=== PATIENT | male | born 1955 | race Caucasian/White ===

== ENCOUNTER 2017-08-21 11:12 | Emergency (ER) | payer OTHER ==
[~2017-08-21] VITALS: Ht 182.9 cm; Wt 145.1 kg
[2017-08-21] MEDS ORDERED: MECLIZINE HCL 12.5 MG TAB PO ONE (11:30)
[2017-08-21 12:20] VITALS: BP 150/88
[2017-08-21] MEDS ORDERED: SODIUM CHLORIDE 0.9% 1000ML 1,000 ML IV SCH (12:45)
[2017-08-22] MEDS ORDERED: SODIUM CHLORIDE 0.9% 1000ML 1,000 ML IV SCH (12:32)
== END 2017-08-21 12:15 | disposition home or self-care (01) ==
LOC: FSED 11:12
DX: R42 Dizziness and giddiness (principal); H81.13 Benign paroxysmal vertigo, bilateral
CPT/HCPCS: 80053; 85025; 99283

== ENCOUNTER 2017-12-05 15:20 | Inpatient (IN) | payer OTHER ==
[~2017-12-05] VITALS: Ht 182.9 cm; Wt 148.3 kg
[2017-12-05] MEDS ORDERED: ONDANSETRON HCL INJ 2 MG/ML VIAL IV STA (15:36)
[2017-12-05] MEDS ORDERED: SODIUM CHLORIDE 0.9% 1000ML 1,000 ML IV STA (15:36)
[2017-12-05] MEDS ORDERED: MORPHINE SULFATE 5 MG/ML VIAL IV ONE (15:45)
[2017-12-05 16:31] LABS: BASOPHILS # (AUTO) 0.1 (0.0-0.1); BASOPHILS % 0.4 % (0.0-1.0); EOSINOPHILS # (AUTO) 0.1 (0.0-0.4); EOSINOPHILS % 0.6 % (0.0-6.0); HEMATOCRIT 41.5 % (38.2-49.6); HEMOGLOBIN 13.5 g/dL (14.0-18.0); LYMPHOCYTES # (AUTO) 3.5 (1.0-3.2); LYMPHOCYTES % 21.8 % (18.0-39.1); MEAN CORPUSCULAR HEMOGLOBIN 28.5 pg (28-32); MEAN CORPUSCULAR HGB CONC 32.5 g/dL (31-35); MEAN CORPUSCULAR VOLUME 87.6 fL (81-99); MONOCYTES # (AUTO) 1.6 (0.2-0.8); MONOCYTES % 9.8 % (4.4-11.3); NEUTROPHILS # (AUTO) 10.9 (2.1-6.9); PLATELET COUNT 168 x10e3/uL (140-360); RED BLOOD COUNT 4.74 x10e6/uL (4.3-5.7); RED CELL DISTRIBUTION WIDTH 13.8 % (11.7-14.4)
[2017-12-05 16:44] LABS: ALBUMIN 3.9 g/dL (3.5-5.0); ALBUMIN/GLOBULIN RATIO 1.3 (0.8-2.0); ANION GAP 16.9 mmol/L (8-16); CALCIUM 9.2 mg/dL (8.4-10.2); CREATININE, SERUM 2.05 mg/dL (0.72-1.25); POTASSIUM 3.9 mmol/L (3.5-5.1)
--- NOTE | 2017-12-05 17:28 | Diagnostic Imaging Report ---
ADDENDUM #1 Addendum: The sixth sentence in the section KIDNEYS/URETERS should read as follows: No LEFT ureteral calculi, left hydronephrosis or obstruction Signed by: Dr. Rogers Gibbs M.D. on 12/12/2017 1:49 PM ORIGINAL REPORT EXAMINATION: CT of the abdomen and pelvis without contrast. TECHNIQUE: Spiral CT images of the abdomen and pelvis were performed from the lung bases to the lesser trochanters. No intravenous contrast was given per renal stone protocol. Coronal and sagittal reformatted images were obtained. COMPARISON: CT abdomen and pelvis with contrast 09/05/2014 CLINICAL HISTORY:Bilateral flank pain, suspected stone DISCUSSION: ABSENCE OF INTRAVENOUS CONTRAST DECREASES SENSITIVITY FOR DETECTION OF FOCAL LESIONS AND VASCULAR PATHOLOGY. ABDOMEN/PELVIS: LOWER THORAX: Atelectatic changes in the right middle and right lower lobe secondary to eventration of the right hemidiaphragm. HEPATOBILIARY: Diffuse hepatic steatosis. No focal lesions. No intra or extrahepatic biliary ductal dilation. GALLBLADDER: No radio-opaque stones or sludge. No wall thickening. SPLEEN: No splenomegaly. PANCREAS: No focal masses or ductal dilatation. ADRENALS: No adrenal nodules. KIDNEYS/URETERS: 5.5 mm partially obstructing calculus at the right UVJ (series 3, image 178), which results in mild right hydronephrosis, mild right periureteral stranding and mild right perinephric stranding. This may represent the calculus that was previously visualized in the lower pole on CT dated 09/05/2014. No right renal calculi. Punctate cortical calcification in the interpolar right kidney (series 3, image 88). 1.1 cm nonobstructing calculus in the inferior pole of the left kidney (series 3, image 102). No right ureteral calculi, left hydronephrosis or obstruction. No contour abnormalities. PELVIC ORGANS/BLADDER: Bladder is decompressed but grossly unremarkable. Prostate is unremarkable. PERITONEUM/RETROPERITONEUM: No free air or fluid. LYMPH NODES: No intra-abdominal,retroperitoneal, pelvic or inguinal lymphadenopathy. VESSELS: Mild atherosclerotic calcification of the distal abdominal aorta and proximal iliac vessels. GI TRACT: No bowel dilation or evidence of obstruction. No pericolonic inflammatory changes. BONES AND SOFT TISSUES: No aggressive lytic lesions. Degenerative disc changes in the lower thoracic and lumbosacral spine. Tiny fat-containing abdominal hernia. IMPRESSION: 1. 5.5 mm partially obstructing calculus at the right UVJ which results in mild right hydronephrosis, mild right periureteral stranding and mild right perinephric stranding. 2. 1.1 cm nonobstructing calculus in the inferior pole of the left kidney. 3. Diffuse hepatic steatosis. Signed by: Dr. Rogers Gibbs M.D. on 12/05/2017 5:25 PM
[2017-12-05 17:29] LABS: CLARITY,URINE CLEAR (CLEAR); COLOR,URINE YELLOW (YELLOW)
[2017-12-05 17:30] LABS: BILIRUBIN,URINE NEGATIVE (NEGATIVE); KETONES,URINE NEGATIVE (NEGATIVE); LEUKOCYTE ESTERASE ,URINE NEGATIVE (NEGATIVE); NITRITE,URINE NEGATIVE (NEGATIVE); PROTEIN,URINE DIPSTICK TRACE (NEGATIVE); URINE UROBILINOGEN 0.2 mg/dL (0.2 - 1)
--- NOTE | 2017-12-05 17:34 | Diagnostic Imaging Report ---
Examination: Single AP view of the chest. COMPARISON: CT abdomen and pelvis performed same date INDICATION: Abdominal pain IMPRESSION: 1. Lines and Tubes: None 2. Lungs are well-inflated. Mild atelectatic changes in the right lower lung secondary to eventration of the right hemidiaphragm. Lungs are otherwise clear. No consolidation or effusion. 3. Cardiomediastinal silhouette is normal. Pulmonary vasculature is normal. 4. No acute bony abnormalities. Signed by: Dr. Rogers Gibbs M.D. on 12/05/2017 5:31 PM
[2017-12-05 17:36] LABS: EPITHELIAL CELLS,URINE RARE /LPF
[2017-12-05 17:37] LABS: WBC,URINE (MAN) 0-5 /HPF (0-5)
[2017-12-05] MEDS ORDERED: CEFTRIAXONE SOD 1 GM VIAL IV SCH (18:45)
[2017-12-05] MEDS ORDERED: MORPHINE SULFATE 2 MG/ML SYR IV PRN (18:45)
[2017-12-05] MEDS ORDERED: ONDANSETRON HCL INJ 2 MG/ML VIAL IV PRN (18:45)
[2017-12-05] MEDS: SODIUM CHLORIDE 0.9% 1000ML 1,000 ML IV SCH (20:26)
[2017-12-05] MEDS: MORPHINE SULFATE INJ 4 MG/ML INJ IV PRN (20:26)
[2017-12-05 20:56] VITALS: BP 132/54
[2017-12-05 21:00] VITALS: BP 132/54
[2017-12-06 00:09] VITALS: BP 107/53
[2017-12-06] MEDS: SODIUM CHLORIDE 0.9% 1000ML 1,000 ML IV SCH ×2 (05:03→14:44)
[2017-12-06 05:12] VITALS: BP 102/46
[2017-12-06 06:01] LABS: BASOPHILS # (AUTO) 0.1 (0.0-0.1); BASOPHILS % 0.5 % (0.0-1.0); EOSINOPHILS # (AUTO) 0.1 (0.0-0.4); EOSINOPHILS % 0.9 % (0.0-6.0); HEMATOCRIT 36.9 % (38.2-49.6); HEMOGLOBIN 11.9 g/dL (14.0-18.0); LYMPHOCYTES # (AUTO) 3.4 (1.0-3.2); MEAN CORPUSCULAR HEMOGLOBIN 28.5 pg (28-32); MEAN CORPUSCULAR HGB CONC 32.2 g/dL (31-35); MEAN CORPUSCULAR VOLUME 88.5 fL (81-99); MONOCYTES # (AUTO) 1.3 (0.2-0.8); MONOCYTES % 9.6 % (4.4-11.3); NEUTROPHILS % 64.5 % (38.7-80.0); PLATELET COUNT 140 x10e3/uL (140-360); RED BLOOD COUNT 4.17 x10e6/uL (4.3-5.7); RED CELL DISTRIBUTION WIDTH 14.1 % (11.7-14.4)
[2017-12-06 06:23] LABS: ALBUMIN 3.3 g/dL (3.5-5.0); ALBUMIN/GLOBULIN RATIO 1.2 (0.8-2.0); ANION GAP 14.4 mmol/L (8-16); CALCIUM 8.5 mg/dL (8.4-10.2); CREATININE, SERUM 2.03 mg/dL (0.72-1.25); POTASSIUM 4.4 mmol/L (3.5-5.1)
[2017-12-06] MEDS: CEFTRIAXONE SOD 1 GM VIAL IV SCH ×2 (08:00→21:04)
[2017-12-06 08:06] VITALS: BP 110/65
[2017-12-06] MEDS ORDERED: HYDRALAZINE HCL 20 MG/ML VIAL IV PRN (08:30)
[2017-12-06] MEDS ORDERED: ACETAMINOPHEN 325 MG TAB PO PRN (08:30)
[2017-12-06 12:00] VITALS: BP 0/0
[2017-12-06] MEDS: FAMOTIDINE 20 MG TAB PO SCH (16:30)
[2017-12-06 20:00] VITALS: BP 127/57
[2017-12-06] MEDS: MORPHINE SULFATE INJ 4 MG/ML INJ IV PRN (20:52)
[2017-12-07] VITALS (7 sets, daily range): BP systolic 109–156; BP diastolic 56–87
[2017-12-07] MEDS: SODIUM CHLORIDE 0.9% 1000ML 1,000 ML IV SCH ×4 (01:23→23:10)
[2017-12-07 05:00] LABS: BASOPHILS # (AUTO) 0.1 (0.0-0.1); BASOPHILS % 0.6 % (0.0-1.0); EOSINOPHILS # (AUTO) 0.3 (0.0-0.4); EOSINOPHILS % 2.1 % (0.0-6.0); HEMATOCRIT 36.2 % (38.2-49.6); HEMOGLOBIN 11.7 g/dL (14.0-18.0); LYMPHOCYTES # (AUTO) 2.8 (1.0-3.2); LYMPHOCYTES % 23.7 % (18.0-39.1); MEAN CORPUSCULAR HEMOGLOBIN 28.5 pg (28-32); MEAN CORPUSCULAR HGB CONC 32.3 g/dL (31-35); MEAN CORPUSCULAR VOLUME 88.1 fL (81-99); MONOCYTES # (AUTO) 1.2 (0.2-0.8); MONOCYTES % 10.3 % (4.4-11.3); NEUTROPHILS # (AUTO) 7.5 (2.1-6.9); NEUTROPHILS % 62.7 % (38.7-80.0); PLATELET COUNT 127 x10e3/uL (140-360); RED BLOOD COUNT 4.11 x10e6/uL (4.3-5.7); RED CELL DISTRIBUTION WIDTH 13.9 % (11.7-14.4)
[2017-12-07 05:16] LABS: ANION GAP 13.9 mmol/L (8-16); CALCIUM 8.5 mg/dL (8.4-10.2); CREATININE, SERUM 1.3 mg/dL (0.72-1.25); POTASSIUM 3.9 mmol/L (3.5-5.1)
[2017-12-07 05:31] LABS: CHOL/HDL RATIO 3.5 (3.9-4.7)
[2017-12-07] MEDS: CEFTRIAXONE SOD 1 GM VIAL IV SCH ×2 (08:20→19:58)
[2017-12-07] MEDS: FAMOTIDINE 20 MG TAB PO SCH ×2 (08:20→16:10)
--- NOTE | 2017-12-07 09:17 | Diagnostic Imaging Report ---
EXAM: ABDOMEN-1VIEW (KUB), DATE: 12/07/2017 6:32 AM INDICATION: Left flank pain COMPARISON: CT 12/05/2017 FINDINGS: BOWEL PATTERN: No evidence for obstruction. SOFT TISSUES: Stable left ureterovesicular junction 0.5 x 0.9 cm stone. No mass effect. LUNG BASES: Left lung base grossly clear. BONES: No acute findings. IMPRESSION: Stable left ureterovesicular junction stone. Signed by: DR. Feliciano Purcell MD on 12/07/2017 7:14 AM
[2017-12-07] MEDS: HYDROCODONE/APAP 5MG-325MG TAB PO PRN ×2 (09:57→19:17)
[2017-12-08] VITALS: BP 109/61
[2017-12-08 04:00] VITALS: BP 140/62
[2017-12-08 05:08] LABS: ANION GAP 13.8 mmol/L (8-16); BLOOD UREA NITROGEN 17 mg/dL (7-26); BUN/CREATININE RATIO 15 (6-25); CALCIUM 8.7 mg/dL (8.4-10.2); CARBON DIOXIDE 23 mmol/L (22-29); CHLORIDE 104 mmol/L (98-107); CREATININE, SERUM 1.13 mg/dL (0.72-1.25); EST GLOMERULAR FILTRATION RATE > 60 ML/MIN (60-); GLUCOSE 112 mg/dL (74-118); MAGNESIUM 1.8 MG/DL (1.3-2.1); POTASSIUM 3.8 mmol/L (3.5-5.1); SODIUM 137 mmol/L (136-145)
[2017-12-08 06:37] LABS: BASOPHILS # (AUTO) 0.1 (0.0-0.1); BASOPHILS % 0.6 % (0.0-1.0); EOSINOPHILS # (AUTO) 0.3 (0.0-0.4); EOSINOPHILS % 2.9 % (0.0-6.0); HEMATOCRIT 36.4 % (38.2-49.6); LYMPHOCYTES # (AUTO) 2.8 (1.0-3.2); MEAN CORPUSCULAR HEMOGLOBIN 28.8 pg (28-32); MEAN CORPUSCULAR VOLUME 87.5 fL (81-99); MONOCYTES # (AUTO) 1.2 (0.2-0.8); MONOCYTES % 10.7 % (4.4-11.3); NEUTROPHILS # (AUTO) 6.6 (2.1-6.9); NEUTROPHILS % 59.9 % (38.7-80.0); PLATELET COUNT 146 x10e3/uL (140-360); RED BLOOD COUNT 4.16 x10e6/uL (4.3-5.7)
[2017-12-08] MEDS: SODIUM CHLORIDE 0.9% 1000ML 1,000 ML IV SCH (06:44)
[2017-12-08] MEDS: CEFTRIAXONE SOD 1 GM VIAL IV SCH (08:00)
[2017-12-08 08:19] VITALS: BP 151/88
[2017-12-08] MEDS: FAMOTIDINE 20 MG TAB PO SCH (08:25)
[2017-12-08] MEDS: HYDROCODONE/APAP 5MG-325MG TAB PO PRN (08:25)
[2017-12-08] MEDS ORDERED: LEVAQUIN500 MG PO (10:50)
[2017-12-08] MEDS ORDERED: ULTRAM 50MG50 MG PO (10:50)
--- NOTE | 2017-12-08 22:50 | Discharge Summary ---
ADMISSION DIAGNOSES 1. Ureterovesical junction calculus with hydronephrosis. 2. Urinary tract infection. 3. Acute kidney injury versus chronic kidney disease. 4. Bradycardia. 5. Morbid obesity. DISCHARGE DIAGNOSES 1. Ureterovesical junction calculus with hydronephrosis. 2. Urinary tract infection. 3. Acute kidney injury versus chronic kidney disease. 4. Bradycardia. 5. Morbid obesity. 6. Ruled out urinary tract infection. HISTORY: Patient has a history of gout and kidney stones with no surgical history. HOSPITAL COURSE: A 62-year-old male complains of lower back pain bilaterally and emesis that began on Saturday. The pain is described as sharp and constant. Patient denies dysuria, admits to hematuria. Nothing makes pain worse, but pain meds improve the pain. Patient denies fever. On admission, urology was consulted. Patient started on IV fluids and pain medications. Patient was also started on Rocephin pending the urine culture results. Creatinine on admission was 2.05. Creatinine on discharge is 1.13. Patient had intermittent bradycardia, but remained asymptomatic. Patient was able to pee and get 1 of the stones out. Per urology, the other stone is not causing any pain, so the patient can discharge home and follow up Saturday as needed. Per urology, patient will discharge home on Levaquin and tramadol. Patient understands discharge instructions and agrees to plan. Vital signs stable. Patient afebrile at time of discharge. Dictated by Zonia Ignacio NP ARIELA SOTO MD Job#: [id number] CQ
--- NOTE | 2017-12-09 07:45 | Consultation ---
DATE OF CONSULTATION: December 05, 2017 UROLOGY CONSULTATION CALLED BY: Emergency room. CHIEF UROLOGICAL COMPLAINT/REASON FOR CONSULTATION: Ureteral calculus and renal failure. HISTORY OF PRESENT ILLNESS: Sabas Hurley is a very pleasant 62-year-old male patient in his normal state of health until he began experiencing abdominal pain. He denied dysuria. Denied gross hematuria. PAST MEDICAL HISTORY: Noted for obesity and gout. MEDICATIONS: Please see MAR. ALLERGIES: TERAZOSIN. SOCIAL HISTORY: No smoking and no drinking. FAMILY HISTORY: Denied any urological malignancies. REVIEW OF SYSTEMS: Noncontributory to the problems as mentioned above. PHYSICAL EXAMINATION GENERAL: Elderly obese man in no acute distress. VITALS: Currently, he is afebrile with stable vital signs. NECK: Supple. CHEST: Symmetric. HEENT: Normocephalic and atraumatic. CARDIOVASCULAR: Regular rate and rhythm. ABDOMEN: Soft, nontender and nondistended. BACK: No CVAT. EXTREMITIES: Without edema. MUSCULOSKELETAL: Moves extremities. PSYCH: Alert and mood appropriate. SKIN: Intact. Normal color. PERTINENT LABORATORY DATA: CT scan revealing a 5.5 mm right UVJ calculus. Mild right hydronephrosis. A large 1.1 cm nonobstructing left lower pole stone. Hemoglobin 11, hematocrit 36 and platelet count 140,000. White blood cell count 13,980. Sodium 139, potassium 3.9, chloride 102, bicarb 24, BUN 28, creatinine 2.05, glucose 98. Urinalysis 11-20 reds and 0-5 whites. IMPRESSION 1. Ureteral calculus. 2. Hydronephrosis. 3. Renal calculus. 4. Microscopic hematuria. 5. Question of urinary tract infection. 6. Acute renal failure. PLAN: Will employ a trial of passage of this UVJ. There is approximately 50% success. Will follow along with you. Job#: [id number] RI cc:DENZEL GUTIERREZ MD
[2017-12-25] MEDS ORDERED: VIT B12 PO (16:31)
--- OUTSIDE RECORDS SUMMARY | 2018-01-23 02:23 | XMS REPORT | Continuity of Care Document ---
Author Author [facility] Organization [facility] Address [address] [place] [address] Phone Unavailable Care Team Providers Care Treasury Director Name Role Phone NO, PCP PCP Unavailable Insurance Providers Guarantor Cely Hurley Address [address] [place] [address] Email NONE Payer [facility] Policy Number [id number] Subscriber's Name Cely Hurley Relationship 18 Self / Same As Patient Advance Directives Directive Response Recorded Date/Time Does the patient have an advance directive? No 09/05/14 4:20pm If yes, is advance directive on file with [facility]? No 09/05/14 4:20pm If not on file with [facility] will patient provide a copy? No 09/05/14 4:20pm Do you have a Directive to Physician? No 08/21/17 11:42am Do you have a Medical Power of Tape Recorder Repairer? Yes 08/21/17 11:42am Do you have an out of hospital Do Not Resuscitate Order? No 08/21/17 11:42am Do you have any special needs we should be aware of? No 08/21/17 11:42am Do you have a support person here with you today? Yes 08/21/17 11:42am Did patient receive Notice of Privacy Practices? Yes 08/21/17 11:42am Did patient receive patient rights and responsibilities? Yes 08/21/17 11:42am Problems No problem information available. Medications No known medications. Social History Smoking Status Start Date Stop Date Never Smoker Hospital Discharge Instructions No hospital discharge instruction information available. Plan of Care Discharge Date 08/21/17 12:15pm Disposition HOME, SELF-CARE Condition at Discharge Stable Instructions/Education Provided Vertigo Forms Provided Work/School Excuse Prescriptions See Medication Section Referrals NO,FAMILY Additional Instructions/Education TAKE MEDICATIONS DIRECTED FOLLOW UP WITH PRIMARY CARE DOCTOR Functional Status No functional status information available. Allergies, Adverse Reactions, Alerts No known allergies. Immunizations No immunization information available. Vital Signs Acute Vital Signs Vital Response Date/Time Temperature (Fahrenheit) 97.1 degrees F (97.6 - 99.5) 08/21/2017 12:20pm Pulse Pulse Rate (adult) 77 bpm (60 - 90) 08/21/2017 12:20pm Respiratory Rate 18 bpm (12 - 24) 08/21/2017 12:20pm Blood Pressure 150/88 mm Hg 08/21/2017 12:20pm Height 6 ft 0 in 08/21/2017 11:20am Weight 320 lb 08/21/2017 11:20am Body Mass Index 43.4 kg/m^2 08/21/2017 11:20am Results No relevant diagnostic test, laboratory data and/or discharge summary information available. Procedures No procedure information available. Encounters Encounter Location Arrival/Admit Date Discharge/Depart Date Attending Provider Departed Emergency Room [facility] 08/21/17 11:12am 08/21 12:15pm KRISTIN ADAMSON MD
--- OUTSIDE RECORDS SUMMARY | 2018-01-23 02:23 | XMS REPORT ---
[facility] Address Unknown Phone Unavailable Care Team Providers Care Forest Products Gatherer Name Role Phone ARIELA SOTO Unavailable Unavailable Problems This patient has no known problems. Allergies, Adverse Reactions, Alerts This patient has no known allergies or adverse reactions. Medications This patient has no known medications. Results Test Description Test Time Test Comments Text Results Atomic Results Result Comments ABDOMEN-1VIEW (KU) 2017-12-07 07:09:00 [place] [address] Patient Name: CELY SHERWOOD MR #: [id number] : 1955 Age/Sex: 62/M Req #: [id number] [facility] Physician: ARIELA SOTO MD Ordered by: VIVI ARIAS MD Report #: [id number] Location: MED/SURG Room/Bed: [facility] Procedure: [id number] DX/ABDOMEN-1VIEW (KU) Exam Date : 12/07/17 Exam Time: 0655 REPORT STATUS: Signed EXAM: ABDOMEN-1VIEW (KU), DATE: 12/07/2017 6:32 AM INDICATION: Left flank pain COMPARISON: CT 12/05/2017 FINDINGS: BOWEL PATTERN: No evidence for obstruction. SOFT TISSUES: Stable left ureterovesicular junction 0.5 x 0.9 cm stone. No mass effect. LUNG BASES : Left lung base grossly clear. BONES: No acute findings. IMPRESSION : Stable left ureterovesicular junction stone. Signed by: DR. Feliciano Bonilla MD on 12/07/2017 7:14 AM Dictated By: FELICIANO BONILLA MD 3 Transcribed By: ANIL on 12/07/17713 COPY TO: VIVI ARIAS MD CHEST SINGLE (NOT PORTABLE) 2017-12-05 17:31:00 [place] [address] Patient Name: CELY SHERWOOD MR #: [id number] : 1955 Age/Sex: 62/M Req #: [id number] Adm Physician: Ordered by: PEPE GREEN MD Report #: [id number] Location: ER Room/Bed: __ Procedure: [id number] DX/CHEST SINGLE (NOT PORTABLE) Exam Date: 12/05/17 Exam Time: 1633 REPORT STATUS: Signed Examination: Single AP view of the chest. COMPARISON: CT abdomen and pelvis performed same date INDICATION: Abdominal pain IMPRESSION: 1. Lines and Tubes: None 2. Lungs are well-inflated. Mild atelectatic changes in the right lower lung secondary to eventration of the right hemidiaphragm. Lungs are otherwise clear. No consolidation or effusion. 3. Cardiomediastinal silhouette is normal. Pulmonary vasculature is normal. 4. No acute bony abnormalities. Signed by: Dr. Ronit Gibbs M.D. on 12/05/2017 5:31 PM Dictated By: RONIT GIBBS MD 30 Transcribed By: ANIL on 12/05/171730 COPY TO: PEPE GREEN MD CT ABDOMEN/PELVIS WO 2017-12-05 17:16:00 [place] [id number] [place] [address] Patient Name: CELY SHERWOOD MR #: [id number] : 1955 Age/Sex: 62/M Req #: [id number] Adm Physician: ARIELA SOTO MD Ordered by: PEPE GREEN MD Report #: [id number] Location: MED/SURG Room/Bed: [facility] Procedure: [id number] CT/CT ABDOMEN/PELVIS WO Exam Date: 12/05/17 Exam Time: 1627 REPORT STATUS: Signed ADDENDUM #1 Addendum: The sixth sentence in the section KIDNEYS/URETERS should read as follows: No LEFT ureteral calculi, left hydronephrosis or obstruction Signed by: Dr. Ronit Gibbs M.D. on 12/12/2017 1:49 PM ORIGINAL REPORT EXAMINATION: CT of the abdomen and pelvis without contrast. TECHNIQUE: Spiral CT images of the abdomen and pelvis were performed from the lung bases to the lesser trochanters. No intravenous contrast was given per renal stone protocol. Coronal and sagittal reformatted images were obtained. COMPARISON: CT abdomen and pelvis with contrast 09/05/2014 CLINICAL HISTORY: Bilateral flank pain, suspected stone DISCUSSION: ABSENCE OF INTRAVENOUS CONTRAST DECREASES SENSITIVITY FOR DETECTION OF FOCAL LESIONS AND VASCULAR PATHOLOGY. ABDOMEN/PELVIS: LOWER THORAX: Atelectatic changes in the right middle and right lower lobe secondary to eventration of the right hemidiaphragm. HEPATOBILIARY: Diffuse hepatic steatosis. No focal lesions. No intra or extrahepatic biliary ductal dilation. GALLBLADDER: No radio-opaque stones or sludge. No wall thickening. SPLEEN: No splenomegaly. PANCREAS: No focal masses or ductal dilatation. ADRENALS : No adrenal nodules. KIDNEYS/URETERS: 5.5 mm partially obstructing calculus at the right UVJ (series 3, image 178), which results in mild right hydronephrosis, mild right periureteral stranding and mild right perinephric stranding. This may represent the calculus that was previously visualized in the lower pole on CT dated 09/05/2014. No right renal calculi. Punctate cortical calcification in the interpolar right kidney (series 3, image 88). 1.1 cm nonobstructing calculus in the inferior pole of the left kidney (series 3, image 102). No right ureteral calculi, left hydronephrosis or obstruction. No contour abnormalities. PELVIC ORGANS/BLADDER: Bladder is decompressed but grossly unremarkable. Prostate is unremarkable. PERITONEUM/RETROPERITONEUM: No free air or fluid. LYMPH NODES: No intra- abdominal,retroperitoneal, pelvic or inguinal lymphadenopathy. VESSELS: Mild atherosclerotic calcification of the distal abdominal aorta and proximal iliac vessels. GI TRACT: No bowel dilation or evidence of obstruction. No pericolonic inflammatory changes. BONES AND SOFT TISSUES: No aggressive lytic lesions. Degenerative disc changes in the lower thoracic and lumbosacral spine. Tiny fat-containing abdominal hernia. IMPRESSION: 1. 5.5 mm partially obstructing calculus at the right UVJ which results in mild right hydronephrosis, mild right periureteral stranding and mild right perinephric stranding. 2. 1.1 cm nonobstructing calculus in the inferior pole of the left kidney. 3. Diffuse hepatic steatosis. Signed by: Dr. Ronit Gibbs M.D. on 12/05/2017 5:25 PM Dictated By: RONIT GIBBS MD [id number] Transcribed By: ANIL on 12/05/17 [id number] COPY TO: PEPE GREEN MD
== END 2017-12-08 11:26 | disposition home or self-care (01) | DRG 694 ==
LOC: ER 15:20 → ERHOLD 18:53 → MED/SURG 20:44
PROVIDERS: ADMIT Internal Medicine; ATTEND Internal Medicine
DX: N13.2 Hydronephrosis with renal and ureteral calculous obstruction (principal); Z68.41 Body mass index [BMI] 40.0-44.9, adult; N17.9 Acute kidney failure, unspecified; Z87.442 Personal history of urinary calculi; Z83.3 Family history of diabetes mellitus; M10.9 Gout, unspecified; N18.9 Chronic kidney disease, unspecified; R00.1 Bradycardia, unspecified; E66.01 Morbid (severe) obesity due to excess calories; R31.29 Other microscopic hematuria
CPT/HCPCS: 36415; 71045; 74018; 74176; 80048; 80053; 80061; 81001; 82948; 83036; 83735; 83880; 85025; 87086; 88300; 96374; 96376; 99284; J0696; J2270; J2405; J7030

== ENCOUNTER → 2017-12-17 | Day surgery (SDC) | payer OTHER ==
[~2017-12-17] MED LIST: CEFTRIAXONE SOD 1 GM VIAL ONE; DEXAMETHASONE SOD PHOS INJ 4 MG/ML VIAL ONE; FENTANYL CITRATE/PF 100MCG/2 ML INJ ONE; IOPAMIDOL 300MG/ML 50ML INFUS..BTL IV ONE; LEVAQUIN500 MG PO; LIDOCAINE HCL 2% LOCAL INJ 5 ML SDV VIAL INJ ONE; MIDAZOLAM HCL 2 MG/2 ML VIAL ONE; ONDANSETRON HCL INJ 2 MG/ML VIAL ONE; PROPOFOL IV EMULSION 10 MG/ML 20 ML VIAL ONE; SEVOFLURANE INHAL SOLN 250 ML PEN BTL ONE; ULTRAM 50MG50 MG PO; VIT B12 PO
[2017-12-17 08:30] VITALS: BP 102/86
--- NOTE | 2017-12-18 09:56 | Operative Report ---
DATE OF PROCEDURE: December 17, 2017 PREOPERATIVE DIAGNOSES 1. Bilateral renal calculi. 2. Right ureteral calculi. 3. Microscopic hematuria. 4. Hydronephrosis. POSTOPERATIVE DIAGNOSES 1. Bilateral renal calculi. 2. Right ureteral calculi. 3. Microscopic hematuria. 4. Hydronephrosis. 5. Left ureteral calculi PROCEDURES 1. Right-sided ureteroscopy with dilation of ureteral stricture (entirely separate procedure for diagnosis of right ureteral stricture). 2. Cystourethroscopy with insertion of a left indwelling ureteral stent (entirely separate procedure for diagnosis of left hydronephrosis). 3. Supervision of fluoroscopy. 4. Interpretation of retrograde pyelography. ANESTHESIA: General. ESTIMATED BLOOD LOSS: Minimal. COMPLICATIONS: None. INDICATIONS: Mr. Hurley is a very pleasant 62-year-old male patient with a symptomatic stone who has failed a trial of passage. He and I had a long discussion regarding the alternatives, risks and benefits, including doing nothing, shock wave lithotripsy, ureteroscopy, percutaneous surgery or open surgery. He voiced an understanding of the options, the alternatives, and the risks and benefits, and elected to proceed. PROCEDURE IN DETAIL: After informed consent was obtained, the patient was taken to the operating suite. He was placed supine on the operating table. He underwent general anesthesia by the anesthesia service. He was placed in the dorsal lithotomy position. He was sterilely prepped and draped in the standard fashion for cystoscopy. A 22.5-Bulgarian cystoscope was inserted per urethra. A normal urethra was noted. There was bipolar prostatic hypertrophy with an elevated bladder neck. Panendoscopy of the bladder revealed no tumors, no stones. Both ureteral orifices were in normal anatomic location and position, and were seen to efflux clear urine. Bilateral retrograde pyelograms were performed. On the right side, there was some distal narrowing. On the left side, there was a very large approximately 8-mm obstructing filling defect with proximal hydronephrosis. A guidewire was inserted on the left side. The ureter was dilated and the ureteroscope was advanced to the level of the ureteral stricture which was imaged, which was photographically captured. A retrograde pyelogram was performed through ureteroscope and confirming there was no other stone as the patient must have passed his right stone. Attention was then turned to the left ureteral orifice. This was catheterized with a guidewire placement to the guidewire on the left side. There was a plethora of purulent material which was expelled. As the purulent material was visualized, I felt it unsafe to proceed with left side ureteroscopy as injection with positive pressure may introduce bacteria in a retrograde fashion. A ureteral stent was deployed with a coil in the renal pelvis and a coil in the patient's bladder on the left side. The bladder was then drained. The patient was awakened from anesthesia and transported to the recovery room in excellent condition. SUPERVISION OF FLUOROSCOPY AND INTERPRETATION OF RETROGRADE PYELOGRAPHY: I was present throughout the entire procedure and supervised the use of fluoroscopy. There was no radiologist present. Attention was turned to the left and right orifices, which were catheterized and retrograde pyelogram was performed. The right side revealed some small distal ureteral strictures, interim passage of right ureteral calculus, left-sided very large 8 x 8 mm distal ureteral calculus, proximal hydronephrosis on the left side. Postoperative views revealed stent in adequate position. Job#: [id number] [employer]
== END | disposition home or self-care (01) ==
LOC: OR 05:10
PROVIDERS: ATTEND Urology
DX: N13.2 Hydronephrosis with renal and ureteral calculous obstruction (principal); N13.1 Hydronephrosis with ureteral stricture, not elsewhere classified; N40.0 Benign prostatic hyperplasia without lower urinary tract symptoms; E66.9 Obesity, unspecified; Z88.8 Allergy status to other drugs, medicaments and biological substances; Z68.42 Body mass index [BMI] 45.0-49.9, adult
CPT/HCPCS: 52332; 52344; 74420; 93005; C2617; J0696; J1100; J2001; J2250; J2405; Q9967

== ENCOUNTER → 2017-12-27 | Day surgery (SDC) | payer OTHER ==
[~2017-12-27] MED LIST changes: -SEVOFLURANE INHAL SOLN 250 ML PEN BTL ONE
[2017-12-27] MEDS: FENTANYL CITRATE/PF 100MCG/2 ML INJ ONE (08:40)
[2017-12-27 09:00] VITALS: BP 137/94
--- NOTE | 2017-12-27 09:36 | Operative Report ---
DATE OF PROCEDURE: December 27, 2017 PREOPERATIVE DIAGNOSES 1. Left ureteral stent. 2. Left hydronephrosis. 3. Left ureteral calculus. POSTOPERATIVE DIAGNOSES 1. Left ureteral stent. 2. Left hydronephrosis. 3. Left ureteral calculus. PROCEDURES 1. Cystourethroscopy with complicated removal of a left indwelling ureteral stent (entirely separate procedure for the diagnosis of left ureteral stent). 2. Left-sided ureteroscopy with laser lithotripsy (entirely separate procedure for the diagnosis of left ureteral calculus). 3. Left-sided ureteroscopy with stone extraction (entirely separate procedure for the diagnosis of type of stone, not required for laser lithotripsy). 4. Supervision of fluoroscopy for the ureteroscopy portion. 5. Supervision of fluoroscopy for the stent removal portion. 6. Interpretation of retrograde pyelograms. ANESTHESIA: General. ESTIMATED BLOOD LOSS: Minimal. COMPLICATIONS: None. INDICATIONS FOR PROCEDURE: Mr. Hurley is a very pleasant, 62-year-old male with a history of left ureteral stent placement for stone. He and I had a long discussion regarding the alternatives, risks and benefits, including doing nothing, cystoscopy and stent removal, ureteroscopy, shock-wave lithotripsy, percutaneous surgery versus open surgery. He voiced an understanding of the options, the alternatives, and the risks and benefits and elected to proceed. PROCEDURE IN DETAIL: After informed consent was obtained, the patient was taken to the operative suite. He was placed supine on the operating table and underwent general anesthesia by the anesthesia service. He was placed in the dorsal lithotomy position. He was sterilely prepped and draped in the standard fashion for cystoscopy. A 22.5-Italian cystoscope was inserted per urethra. A normal urethra was noted. Panendoscopy of the bladder revealed no tumors and no stones. Both ureteral orifices were in their normal anatomic location and position. A stent was seen extruding from the left. It was grasped and removed. Attempts were made to insert a guidewire, and this failed. A ureteroscope was advanced. A wire was placed alongside the stent. The ureteroscope was advanced after stent removal to the level of the offending ureteral stone. Utilizing 365 micron laser fiber, the stone was broken into various small fragments, the largest of which was basketed and extracted and passed off the table with the explicit purpose of sending the stone for analysis for future prevention of stones, not required for laser lithotripsy. At this time, the ureteroscope was reinserted. There were no stones larger than the guidewire. The wire was then removed. The bladder was drained. The patient was awakened from anesthesia and transported to the recovery room in excellent condition. SUPERVISION OF FLUOROSCOPY: I was present throughout the entire procedure and supervised the fluoroscopy for the ureteroscopy and stent removal portions. There was no radiologist present. Job#: [id number]
== END | disposition home or self-care (01) ==
LOC: OR 05:02
PROVIDERS: ATTEND Urology
DX: N20.1 Calculus of ureter (principal); N13.30 Unspecified hydronephrosis; N39.0 Urinary tract infection, site not specified; Z46.6 Encounter for fitting and adjustment of urinary device; G47.33 Obstructive sleep apnea (adult) (pediatric); E66.01 Morbid (severe) obesity due to excess calories; Z88.8 Allergy status to other drugs, medicaments and biological substances; Z68.42 Body mass index [BMI] 45.0-49.9, adult; Z84.1 Family history of disorders of kidney and ureter
CPT/HCPCS: 76000; 88300; J0696; J1100; J2001; J2250; J2405

== ENCOUNTER → 2018-08-21 | Outpatient (CLI) | payer OTHER ==
[~2018-08-21] MED LIST changes: -CEFTRIAXONE SOD 1 GM VIAL ONE; -DEXAMETHASONE SOD PHOS INJ 4 MG/ML VIAL ONE; -FENTANYL CITRATE/PF 100MCG/2 ML INJ ONE; -IOPAMIDOL 300MG/ML 50ML INFUS..BTL IV ONE; -LIDOCAINE HCL 2% LOCAL INJ 5 ML SDV VIAL INJ ONE; -MIDAZOLAM HCL 2 MG/2 ML VIAL ONE; -ONDANSETRON HCL INJ 2 MG/ML VIAL ONE; -PROPOFOL IV EMULSION 10 MG/ML 20 ML VIAL ONE
--- NOTE | 2018-08-21 17:02 | Diagnostic Imaging Report ---
Exam: KUB - 2 views Clinical History: Renal calculus. Comparison: KUB 12/07/2017. Findings: Previously noted left UVJ stone is no longer visualized. Bilateral pelvic calcifications likely represent phleboliths. Bowel gas partially obscures visualization of the right kidney. No evidence of calcification overlying the kidneys or expected course of the ureters. Nonobstructive bowel gas pattern. No acute osseous abnormality. Impression: No radiographic evidence of stone. Recent noted left UVJ stone is no longer visualized. Signed by: Dr. Ayan Garcia MD on 08/21/2018 4:58 PM
== END ==
LOC: RAD 15:49
PROVIDERS: ATTEND Urology
DX: N20.0 Calculus of kidney (principal)
CPT/HCPCS: 74018

== ENCOUNTER 2022-10-22 10:42 | Emergency (ER) | payer BC, MEDICARE ==
[~2022-10-22] VITALS: Ht 182.9 cm; Wt 136.1 kg
[~2022-10-22 10:42] MED LIST changes: +GABA PO; +MULTIVITAMINS1 EAC7 PO; +VITAMIN D3400 UNIT PO
[2022-10-22] MEDS ORDERED: KETOROLAC TROMETHAMINE 30 MG/ML VIAL IM STA (11:20)
[2022-10-22] MEDS ORDERED: ANAPROX DS550 MG PEG (11:32)
[2022-10-22] MEDS ORDERED: DEXAMETHASONE SOD PHOS 10 MG/1 ML VIAL IM ONE (11:45)
[2022-10-22] MEDS ORDERED: COLCHICINE 0.6 MG TAB PO ONE (11:45)
[2022-10-22 12:05] VITALS: O2SAT 98
== END 2022-10-22 12:07 | disposition home or self-care (01) ==
LOC: ER 11:13
DX: M10.9 Gout, unspecified (principal)
CPT/HCPCS: 99283; J1100; J1885